=== PATIENT | female | born 1935 | race Caucasian/White ===

== ENCOUNTER → 2017-09-14 | Outpatient (CLI) | payer OTHER ==
[~2017-09-14] MED LIST: ASPIRIN325 PO; GAS RELIEF80 MG PO; TRAMADOL 50 MG50 MG PO; TYLENOL325 MG PO
== END ==
LOC: NUC 10:34
DX: M81.0 Age-related osteoporosis without current pathological fracture (principal); Z78.0 Asymptomatic menopausal state